=== PATIENT | female | born 1940 | race Caucasian/White ===

== ENCOUNTER 2016-11-24 09:44 | Day surgery (SDC) | payer OTHER ==
[2016-11-24] MEDS ORDERED: HURRICAINE SPRAY (DOSE) ONE (10:38)
[2016-11-24] MEDS ORDERED: SODIUM CHLORIDE 0.9% 20 ML ONE (10:39)
[2016-11-24] MEDS ORDERED: XYLOCAINE 4% TOPICAL SOLUTION ONE (10:39)
[2016-11-24] MEDS ORDERED: XYLOCAINE 2% VISCOUS ONE (10:39)
[2016-11-24] MEDS ORDERED: NS 1,000 ML ONE (11:53)
[2016-11-24 12:35] LABS: MANUAL DIFF NEEDED? NO
[2016-11-24 12:45] LABS: BASO% 0.8 % (0.0-0.8); EOS# 0.14 X1000 (0.0-0.7); EOS% 2.3 % (0.0-10.0); HEMOGLOBIN 14.1 g/dL (12.0-16.0); LYMPH# 1.84 X1000 (1.2-3.4); LYMPH% 30.2 % (20.5-51.1); MCH 33.7 PG (27-31); MCHC 33.6 g/dL (33-37); MCV 100.2 FL (81-99); MONO# 0.54 X1000 (0.11-0.59); MONO% 8.9 % (1.7-9.3); MPV 10.7 FL (7.4-10.4); NEUT% 57.8 % (42.2-75.2); PLT 224 X1000 (130-400); RBC 4.19 XMIL (4.2-5.4)
[2016-11-24] MEDS ORDERED: DIPRIVAN 1% ONE (13:14)
[2016-11-24 13:19] LABS: AGAP 12; BUN 14 mg/dL (8-22); CALCIUM 9.2 mg/dL (8.8-10.2); CHLORIDE 99 mmol/L (98-107); COSMO 276; POTASSIUM 4.4 mmol/L (3.5-5.1); SODIUM 138 mmol/L (136-145); TCO2 27 mmol/L (25-35)
--- NOTE | 2016-11-24 13:31 | CARDIAC CATH REPORT ---
PROCEDURE NAME: - PROCEDURE: Cardioversion. INDICATION FOR THE PROCEDURE: Atrial fibrillation. PROCEDURE IN DETAIL: Ms. Mahajan was brought to the catheterization laboratory in fasting state. Informed consent was obtained. She was prepped in usual fashion. She had a MAURICIO performed per usual protocol. No clot was visualized. She was then ensured to be sedated. The device was charged to 250 joules, ensured to be in a synchronized fashion, and 1 shock was delivered with conversion to sinus rhythm. The patient tolerated the procedure well without any complications. She will return to the floor for usual postprocedure convalescence and discharged later on today.
[2016-11-24] MEDS ORDERED: XYLOCAINE-MPF 2% ONE (13:43)
[2016-11-24 13:59] VITALS: BP 113/83
--- NOTE | 2016-11-24 14:50 | EKG Report ---
Test Performed on : 11/24/2016 1:44:59 PM Test Reason : post MAURICIO Blood Pressure : / mmHG Vent. Rate : 068 BPM Atrial Rate : 068 BPM P-R Int : 232 ms QRS Dur : 082 ms QT Int : 394 ms P-R-T Axes : 066 -22 -29 degrees QTc Int : 418 ms Sinus rhythm. with 1st degree AV block. with occasional premature ventricular complexes. and prematur e atrial complexes. Possible Anterior infarct (cited on or before 20-MAY-2013) Abnormal ECG When compared with ECG of 20-MAY-2013 23:09, premature ventricular complexes. are now present QT has lengthened Confirmed by Balta RM, Steven Sands ([id number]) on 11/24/2016 3:42:41 PM
--- NOTE | 2016-11-24 15:53 | Transesophageal Echocardiogram ---
DATE: 11/24/2016 INDICATION FOR THE PROCEDURE: Atrial fibrillation. Evaluate prior to cardioversion. PROCEDURE IN DETAIL: Ms. Mahajan was brought to the catheterization laboratory in a fasting state. Informed consent was obtained. Prepped in usual fashion. Using viscous lidocaine and Hurricaine spray. She was sedated by anesthesia using propofol. After adequate sedation the MAURICIO probe was placed without difficulty. Images were obtained in multiple views. At the conclusion of the procedure, the probe was removed. The patient tolerated the procedure well without any complications. FINDINGS: 1. Right atrium is extremely difficult to visualize. There is no evidence of shunting seen across the interatrial septum via color Doppler or via injection of agitated saline contrast. 2. There is mild tricuspid regurgitation. 3. Right ventricle appears to be normal in size with normal RV systolic function. 4. Mild pulmonic insufficiency is identified. 5. Left atrium appears moderately to severely enlarged. There is no evidence of clot in the left atrium or the left atrial appendage. The pulse wave velocity in the left atrial appendage is approaching 50 cm/sec. There was good color flow seen throughout the distance of the left atrial appendage. 6. There is no evidence of mitral valve prolapse. There is mild bordering on moderate central mitral regurgitation. No evidence of stenosis. 7. The left ventricle appeared to be normal in size. There did appear to be reduction in LV systolic function but this was a somewhat difficult study to estimate EF based on the patient currently being in atrial fibrillation/flutter with rates of around 120. Estimated EF is around 35% with global hypokinesis. 8. The aortic valve appears trileaflet. There is no evidence of stenosis. There is mild central aortic insufficiency. 9. Aorta appears normal in caliber on visualized segments. There does appear to be mixed atherosclerotic plaque throughout the descending thoracic aorta to a mild degree. 10. No pericardial effusion is identified.
== END 2016-11-24 14:05 | disposition home or self-care (01) ==
LOC: CATH 09:44
PROVIDERS: ATTEND Internal Medicine Cardiovascular Disease
DX: I48.91 Unspecified atrial fibrillation (principal); R94.31 Abnormal electrocardiogram [ECG] [EKG]; I37.1 Nonrheumatic pulmonary valve insufficiency; I08.1 Rheumatic disorders of both mitral and tricuspid valves; R74.8 Abnormal levels of other serum enzymes; E78.00 Pure hypercholesterolemia, unspecified; I10 Essential (primary) hypertension; D01.0 Carcinoma in situ of colon; R00.2 Palpitations; R42 Dizziness and giddiness; Z87.891 Personal history of nicotine dependence; Z85.72 Personal history of non-Hodgkin lymphomas; Z79.899 Other long term (current) drug therapy; Z79.01 Long term (current) use of anticoagulants; Z85.820 Personal history of malignant melanoma of skin; Z82.49 Family history of ischemic heart disease and other diseases of the circulatory system
CPT/HCPCS: 80048; 84443; 85025; 92960; 93005; 93010; 93312; J7030